=== PATIENT | female | born 1960 | race Caucasian/White ===

== ENCOUNTER 2023-11-09 21:02 | Emergency (ER) | payer BC, SELFPAY ==
[2023-11-09 21:12] VITALS: BP 92/64
--- NOTE | 2023-11-09 23:19 | ED.GENMED ---
History of Present Illness
General
Chief Complaint: Fall
Source: patient
Exam Limitations: none
Time Seen by Provider: 11/09/23 23:03
Travel History
Have you had any contact with someone who has COVID-19?: No
Do you have any symptoms of coronavirus? Fever > 100 degrees, chills, cough, shortness of breath, sore throat, loss of taste or smell, muscle aches, or headache?: No
History of Present Illness
History of Present Illness:
This is a 63 year old female that comes in with c/o fall. States that this morning she was going out for breakfast and she tripped and his her head on the right sided and her right rib area. States that she was nauseated and had a headache across
her forehead. States that she also has right sided rib pain. State that she felt she better come in and get checked. Denies any fever, chills, chest pain,SOB, abd pain, vomiting, diarrhea, dizziness, urinary burning.
Past History
Past History
ED Past Medical History: HTN
ED Past Surgical History: Cholecystectomy, (X 3), Orthopedic (Left rotator cuff surgery X 2, ) and Other (Hernia repair X 2, )
Social History
Tobacco: Non-smoker
Alcohol: Occasional
Personal:
Living: with family
Review of Systems
Review of Systems
All Other Systems: ROS reviewed and negative except as documented in HPI and ROS
Constitutional: Reports no symptoms; Denies fever or chills
EENT: Reports no symptoms
Respiratory: Reports no symptoms; Denies cough or trouble breathing
Cardiac: Reports no symptoms; Denies chest pain
ABD/GI: Reports nausea; Denies abdominal pain, vomiting or diarrhea
: Reports no symptoms; Denies dysuria, frequency or urgency
Musculoskeletal: Reports other (right rib pain)
Skin: Reports no symptoms
Neurological: Reports headache; Denies dizzy
Psychiatric: Reports no symptoms
Phy Exam
General Physical Exam
General Presentation: well appearing
General age: appears stated age
General Skin: warm and dry
General Habitus: normal
General Mental: alert
General Hydration: appears well hydrated
ENT Exam
ENT Exam: TM's normal, pharynx normal and neck supple
Eye Exam
Eye Exam: EOMI
Cardiovascular Exam
Cardiovascular Exam: regular rate/rhythm, no edema and normal peripheral pulses
Pulmonary Exam
Pulmonary Exam: lungs clear, no respiratory distress, no rales, chest non tender, no crackles, no rhonchi, no wheezing and no cough
Gastrointestinal Exam
Gastrointestinal Exam: normal bowel sounds, non tender, soft, no organomegaly, no pulsatile mass and non distended
Musculoskeletal Exam
Musculoskeletal Exam: full ROM, no edema and other (Negative for cervical neck tenderness or shoulder tenderness. Patient can cross over, abduct, Flex elbows. Negative for any spinal tenderness. )
Skin Exam
Skin Exam: normal color, warm/dry, no rash, no petechia and other (right contusion around right eye with abrasion at the eyebrow)
Psychiatric Exam
Psychiatric Exam: normal mood/affect
Course
Orders/Labs/Results
Orders:
Orders
11/10/23 00:00
CT Head W/o Iv Contrast Urgent
Reason For Exam: Fall hitting head, Headache
11/10/23 00:05
CR Ribs-right 3 Vw W/pa Chest* Urgent
Reason For Exam: Fall right sided rib pain
Vital Signs
Initial and Last Documented VS:
Initial Vital Signs
Temp Pulse Resp BP Pulse Ox
98.4 F 65 18 92/64 97
11/09/23 21:12 11/09/23 21:12 11/09/23 21:12 11/09/23 21:12 11/09/23 21:12
Last Documented Vital Signs
Temp Pulse Resp BP Pulse Ox
98.4 F 62 16 113/62 97
11/09/23 21:12 11/09/23 23:27 11/09/23 23:27 11/09/23 23:27 11/09/23 23:27
MDM/Problems Addressed
Differential Diagnosis Includes:
Intracranial bleeding. Headache, Contusion
MDM/Problems Addressed:
This is a 63 year old female that comes in with c/o fall. States that she tripped and fell in the morning. States that she hit her head and the right rib area. States that she has a headache with nausea and that there is soreness on the lower ribs.
Will get CT head and X-ray ribs.
Back into see patient. Explained that her CT of her head is negative and her Chest and rib series is negative for Pneumothorax or rib fractures. Will give patient a prescription for Zofran and have her follow up with the PCP. Explained that if the
radiologist see's anything different she would be called. Otherwise Tylenol or Ibuprofen for pain. Return with any concerns.
Chronic conditions affecting care:
NA
Acute Exacerbation and/or Progression of Chronic Illness:
NA
*Radiology
Radiology exam reviewed: preliminary read by ED provider (Chest rib series- Chest negative for Pneumothorax of rib fractures. ) and radiology read reviewed (CT head night hawk- No acute intracranial hemorrhage. No acute intracranial abnormality. )
*Pulse Oximetry
Patient hypoxic: no
*EKG
Interpreted by ED Provider?: NA
Rate: EKG- N/A
*Automotive Artist Interpretation
Rate: Automotive Artist- N/A
*Critical Care Note
Total Time (30-74mins, 75-104mins- exclusive of procedures): Not Applicable
ED Attending Note
-
Portions of this chart may have been created with voice recognition software.� Occasional wrong word or��sound alike� substitutions may have occurred due to the inherent limitations of voice recognition software.
Discharge Plan
Departure
Patient Disposition: Home (Routine Discharge)
Date of Disposition: 11/10/23
Time of Disposition: 01:28
Patient with high blood pressure during this ER visit?: No
Condition: Good
Covid-19: Not Applicable
Discharge Problem:
Accidental fall, Headache, Contusion of right chest wall
Instructions: Concussion, Adult (DC), Contusion (DC), Preventing falls in adults, Headache, Adult (DC)
Prescriptions:
New
ondansetron 4 mg tablet,disintegrating
4 mg PO Q8H PRN (Reason: nausea and vomiting) Qty: 7 0RF
No Action
atorvastatin 80 mg Tablet
80 mg PO DAILY
lisinopril-hydrochlorothiazide 20-12.5 mg Tablet
1 tab PO BID
hydroxyzine HCl 25 mg Tablet
25 mg PO HSPRN PRN (Reason: insomnia)
cholecalciferol (vitamin D3) [Vitamin D3] 25 mcg (1,000 unit) Capsule
25 mcg PO DAILY
ezetimibe 10 mg Tablet
10 mg PO DAILY
metformin 500 mg Tablet Extended Release 24 Hr
500 mg PO BID
ranolazine 500 mg Tablet Extended Release 12 Hr
500 mg PO Q12H
aspirin 81 mg Capsule
81 mg PO DAILY
Referrals:
Anjum Cao Jr., DO [Family Provider] - Follow up in 2-3 days
Activity Restrictions/Additional Instructions:
As discussed, your CT of the head is negative for any acute process. Your Chest x-ray is negative for any pneumothorax or obvious rib fractures. Your X-ray will be read again by the radiologist in the morning and if there is anything different you
will be called. The nausea may be due to a Concussion. This will go away on its own. You have had a prescription for Zofran sent to your Pharmacy to help with any nausea, vomiting. Please follow up with the family doctor in the next 2-3 days for
recheck. IF YOU HAVE INCREASED HEADACHE OR VOMITING MORE THEN TWICE OR YOU HAVE ANY OTHER CONCERNS PLEASE RETURN TO THE EMERGENCY ROOM.
Interventions
Interventions:
*Risk Screen - Suicide Last Done: 11/09/23 21:12
*General Assessment Last Done: 11/09/23 21:12
*Neglect/Abuse Screening Last Done: 11/09/23 21:12
ED- Fall Risk Assessment Last Done: 11/09/23 23:27
*ED COVID-19 Vaccine History Last Done: 11/09/23 23:19
ED-Musculoskeletal Assessment Last Done: 11/09/23 23:27
ED- Neurological Assessment Last Done: 11/09/23 23:27
ED-Skin Assessment Last Done: 11/09/23 23:27
Discharge Date and Time
Print Language: [place] K[place]
[2023-11-09 23:27] VITALS: BP 113/62; BMI 43.8
[2023-11-10 01:35] VITALS: BP 108/63
[2023-11-10] MEDS: ZOFRAN ODT (ORALLY DISINTEGRATING) 8 MG PO (01:38)
== END 2023-11-10 01:40 | disposition home or self-care (01) ==
LOC: EMR 21:02
PROVIDERS: EMERGENCY PHYSICIAN Emergency Medicine; FAMILY PHYSICIAN Family Medicine
DX: S20.211A Contusion of right front wall of thorax, initial encounter (principal); W01.0XXA Fall on same level from slipping, tripping and stumbling without subsequent striking against object, initial encounter; R51.9 Headache, unspecified
CPT/HCPCS: 99284; 70450; 71101